=== PATIENT | male | born 1980 | race Caucasian/White ===

== ENCOUNTER 2016-10-05 18:04 | Emergency (ER) | payer OTHER ==
[~2016-10-05] VITALS: Ht 182.9 cm; Wt 100.0 kg
[~2016-10-05 18:04] MED LIST: CYCL10TA9 PO; IBUP800T28 PO
[2016-10-05 18:05] VITALS: BP 133/70; PULSE 93; RESP 19; O2SAT 98
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
--- NOTE | 2016-10-05 19:37 | DRSVH ---
PROCEDURE: CT CERVICAL SPINE WITHOUT CONTRAST ([id number]) INDICATIONS: seizure TECHNIQUE: Noncontrast 3 mm thick sections acquired from the skull base to the T4 level. Sagittal and coronal r eformats were then constructed. For radiation dose reduction, the following was used: automated exp osure control, adjustment of mA and/or kV according to patient size. COMPARISON: [facility], CT, CT CERVICAL SPINE WO CON, 12/27/2015, 12:01. FINDINGS: Image quality: Excellent. Bones: No fractures or dislocations. Visualized superior ribs are intact. Soft tissues: Prevertebral soft tissues are normal in thickness. No paravertebral hematomas. No ap ical pneumothoraces. IMPRESSION: No abnormalities found in the cervical spine. Specifically no fracture. Dictated by: Jordan Joy M.D. on 10/05/2016 at 19:32 Approved by: Jordan Jyo M.D. on 10/05/2016 at 19:35
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
--- NOTE | 2016-10-05 19:48 | DRSVH ---
PROCEDURE: X-RAY PELVIS W/LAT HIP (LT) ([id number]) INDICATIONS: hip pain post seizure TECHNIQUE: AP pelvis with lateral view(s) of the left hip(s). COMPARISON: None. FINDINGS: Bones: No fractures or dislocations. Pelvic ring appears intact. No suspicious bony lesions. Soft tissues: The visualized bowel gas pattern is normal. No suspicious soft tissue calcifications. IMPRESSION: No traumatic abnormalities seen in the pelvis or left hip. Dictated by: Jordan Joy M.D. on 10/05/2016 at 19:46 Approved by: Jordan oJy M.D. on 10/05/2016 at 19:47
[2016-10-05 19:57] VITALS: BP 132/70; PULSE 78; RESP 14; O2SAT 99
[2016-10-05 20:08] LABS: BASOPHILS % (AUTO) 0.1 % (0-3); EOSINOPHILS % (AUTO) 0.2 % (0-5); MONOCYTES % (AUTO) 4.9 % (4-12); Mean Corpuscular Hemoglobin 31.5 pg (27.0-35.0); Mean Corpuscular Volume 87.5 fL (81-100); NEUTROPHILS % (AUTO) 86.4 % (40-74); Platelet Count 154 bil/L (150-400)
[2016-10-05 20:53] VITALS: BP 134/80; PULSE 77; RESP 12; O2SAT 99
[2016-10-05] MEDS ORDERED: levETIRAcetam 500 mg Tablet PO ONE (21:10)
[2016-10-05] MEDS ORDERED: HYDROcodone-APAP 5-325 mg Tablet PO ONE (21:10)
[2016-10-05] MEDS ORDERED: LEVE100014 PO (21:13)
[2016-10-05 21:15] VITALS: BP 134/80; PULSE 77; RESP 12; O2SAT 99
== END 2016-10-05 21:36 | disposition home or self-care (01) ==
LOC: SED 18:04
DX: R56.9 Unspecified convulsions (principal); G93.89 Other specified disorders of brain; M25.552 Pain in left hip; F17.200 Nicotine dependence, unspecified, uncomplicated
CPT/HCPCS: 36415; 70450; 72125; 73501; 80053; 85025; 99285; G0480

== ENCOUNTER 2016-11-06 22:58 | Observation (INO) | payer OTHER ==
[~2016-11-06] VITALS: Ht 182.9 cm; Wt 94.1 kg
[~2016-11-06 22:58] MED LIST changes: +LEVE100014 PO
[2016-11-06 23:01] VITALS: BP 157/102; PULSE 100; RESP 22; O2SAT 100
--- NOTE | 2016-11-07 00:07 | ED.REPORT ---
HPI-Headache Date of Service Nov 07, 2016 ED Provider:Lee Ferguson MD The patient is a 36 year old male with a hx of MS, and seizures presenting to the ED complaining of a severe, throbbing headache onset nine days ago. He claims that his headache has been exacerbated over the last couple of days. He was recently diagnosed with MS and began taking methylprednisolone but was experiencing the headaches prior to starting that medication. Additionally, the patient reports that feels lightheaded, and that his heart is racing. He denies vomiting. Nursing Notes Stated Complaint: DIZZY,HEART RACING Chief Complaint: Headache Nursing Notes Reviewed: Yes Allergies: Coded Allergies: No Known Allergies (Unverified Allergy, Unknown, 11/06/16) Scheduled Levetiracetam (Keppra) 1,000 Mg Tablet 1,000 MG PO BID Scheduled PRN Cyclobenzaprine (Cyclobenzaprine) 10 Mg Tablet 10 MG PO TID PRN PRN Spasm Ibuprofen (Ibuprofen) 800 Mg Tablet 800 MG PO TID PRN PRN For Pain General Time Seen by MD: 00:02 Chief Complaint Headache Hx Obtained From: Patient Arrived By: Walk-in Sudden in Onset?: Yes Onset Occurred: More than a week ago... (9 days ago) Symptom Duration: Since onset Quality: Throbbing Recent Healthcare: No recent hospitalization, Recent doctor visit Similar Sx Previous: Yes Risk-Headache )( SAH Risk Stratification RF Statements: Risk factors reviewed )( IC Mass Risk Stratification RF Statements: Risk factors reviewed Past Medical History Past Medical History Chronic back pain secondary to DDD MS Past Surgical History none reported Smoking History Current Every Day Smoker Social History Alcohol Use: 1-3 per week Drug Use: THC Ambulatory Status Independent Review of Systems Heart racing Constitutional: Denies: Chills, Fever GI: Denies: Nausea, Vomiting Neurologic: Reports: Headache, Lightheaded Complete sys rev & neg: except as marked. Respiratory: Denies: Shortness of breath Physical Exam Initial Vital Signs Vital Signs (First) Date Time Temp Pulse Resp B/P Pulse Ox O2 Delivery O2 Flow Rate FiO2 11/06/16 23:01 36.3 100 22 157/102 100 Room Air Initial VS: Reviewed, Vital signs normal ENT: Mucous membranes moist Respiratory: Breath sounds normal, No respiratory distress Cardiovascular: Regular rate & rhythm, Heart sounds normal, Intact distal pulses Abdomen / GI: Soft, Non-tender Back: No CVA tenderness Skin: Warm, Dry Psychiatric: Mood/affect normal General/Constitutional: Awake, Alert, Well hydrated Lips dry Head / Eyes: Atraumatic, Normocephalic Pupils: Positive: Photophobia L, Photophobia R Neck: Atraumatic, Supple, Full range of motion Neurologic: Oriented X3, No motor deficits, No sensory deficits, CN II - XII intact Severe headache Interpretation & Diagnostics Lab Results Interpretation Result Diagram: 11/07/16 0045 11/07/16 0045 Test 11/07/16 00:45 11/07/16 02:45 White Blood Count 10.3th/mm3 (3.8-10.1) Red Blood Count 5.34mil/mm3 (4.40-5.80) Hemoglobin 16.8g/dL (13.8-17.2) Hematocrit 46.2% (41.0-50.0) Mean Corpuscular Volume 86.5fL (81-100) Mean Corpuscular Hemoglobin 31.5pg (27.0-35.0) Mean Corpuscular Hemoglobin Concent 36.4% (32.0-37.0) Red Cell Distribution Width 12.3% (12.3-15.4) Platelet Count 157bil/L (150-400) Neutrophils (%) (Auto) 68.9% (40-74) Lymphocytes (%) (Auto) 22.4% (14-46) Monocytes (%) (Auto) 6.9% (4-12) Eosinophils (%) (Auto) 0.6% (0-5) Basophils (%) (Auto) 0.1% (0-3) Sodium Level 138mEq/L (134-144) Potassium Level 3.4mEq/L (3.5-5.2) Chloride Level 100mEq/L (97-108) Carbon Dioxide Level 25mmol/L (18-29) Blood Urea Nitrogen 20mg/dL (6-20) Creatinine 0.78mg/dL (0.76-1.27) Estimat Glomerular Filtration Rate 119mL/min (>59) Glucose Level 90mg/dL (60-99) Calcium Level 8.6mg/dL (8.5-10.1) Magnesium Level 2.3mg/dL (1.6-2.6) Total Bilirubin 0.5mg/dL (0.0-1.2) Aspartate Amino Transf (AST/SGOT) 15U/L (0-50) Alanine Aminotransferase (ALT/SGPT) 25U/L (0-44) Alkaline Phosphatase 57U/L (25-150) Total Protein 5.9g/dL (6.4-8.4) Albumin 3.8g/dL (3.4-5.0) CT Head Interpretation CONCLUSION: Areas of low-density in the white matter as described are compatible with MS plaques. No significant mass effect. No hemorrhage. No specific etiology for headache. This report was transmitted to the emergency room at 11/07/2016 - 12:49:51 AM PDT. Study: Head CT no contrast Interpretation / Wet Read by: Interpret - Radiologist Re-Eval/Medical Decision Med Decision/Clinical Course 36-year-old male recently diagnosed with MS and on infusions of methylprednisolone. He developed severe headache which was treated here with Compazine, fluids, and Toradol with good relief. Repeat CT scan because of the intensity of headache showed worsening MS plaques. His case was discussed with Dr. rush and he will be admitted to the hospital service. He will get a MS protocol MRI and neurological consult first thing in the morning. Re-Evaluation/Progress : Time of Eval: 01:19 Re-Evaluation/Progress Note: Patient rechecked. Discussed plan to admit. Patient understands and agrees with the plan. All questions addressed at this time. Consultation #1: Referral / Consult Name: Jamal Rush MD Consulted With: Neurology Call Returned at: 00:57 Drum Tender: Agrees with eval, Agrees with plan Note: Discussed patient's condition. Agrees with evaluation and plan to admit. Wants to get MRI in the morning. Consultation #2: Referral / Consult Name: Manasa Edwards DO Consulted With: Hospitalist Call Returned at: 01:42 Drum Tender: Will see patient, Agrees with plan, Accepts admit Note: Accepts admit. Counseled Regarding: Diagnosis, Lab results, Need for admission Discharge & Departure Referrals: Ra Brennan MD (PCP) Scribe Attestation Portions of this note were transcribed by Dominick Resendiz. I, Dr. Ferguson personally performed the history, physical exam and medical decision-making; I reviewed and confirmed the accuracy of the information in the transcribed note. Signed by: Louis Barr, 11/07/2016 copies to: Ra Brennan MD, Lee Glez MD Nov 07, 2016 00:07 Nov 07, 2016 00:16
[2016-11-07] MEDS ORDERED: 0.9% Sodium Chloride 1,000 ML IV ONE ×2 (00:19→01:03)
[2016-11-07] MEDS ORDERED: ProchlorPERazine 5 mg/mL 2 mL Inj IVPUSH ONE (00:20)
[2016-11-07 01:24] LABS: BASOPHILS % (AUTO) 0.1 % (0-3)
[2016-11-07 01:35] LABS: EOSINOPHILS % (AUTO) 0.6 % (0-5); MONOCYTES % (AUTO) 6.9 % (4-12); Mean Corpuscular Hemoglobin 31.5 pg (27.0-35.0); Mean Corpuscular Volume 86.5 fL (81-100); NEUTROPHILS % (AUTO) 68.9 % (40-74); Platelet Count 157 bil/L (150-400)
[2016-11-07 01:56] LABS: Magnesium 2.3 mg/dL (1.6-2.6)
[2016-11-07] MEDS ORDERED: Polyethylene Glycol (PEG) 17 Gm Powder PO PRN (02:20)
[2016-11-07] MEDS ORDERED: Ondansetron 2 mg/mL 2 mL Inj IVPUSH PRN (02:20)
[2016-11-07] MEDS ORDERED: Alum-Mag Hydrox-Simeth 30 mL Suspension PO PRN (02:20)
[2016-11-07 02:38] VITALS: BP 145/89; PULSE 88; RESP 20; O2SAT 100
--- NOTE | 2016-11-07 03:24 | NUR ---
Admit patient arrived to unit able to self transfer to bed. A&O, oriented to room, and call light. Due to nature of admission, lights left on low or off, and noise is at a minimal. reports hx of seizure 1 month ago, request made to CS for protective seizure pads. Also reports new diagnosis of MS a week or two ago. Bed in low position, call light within reach, frequent rounding for safety.
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
[2016-11-07 03:30] VITALS: BP 112/67; PULSE 53; RESP 18; O2SAT 96
[2016-11-07 03:30] LABS: APPEARANCE,URINE CLEAR (CLEAR,HAZY); COLOR,URINE YELLOW (YELLOW)
[2016-11-07 03:32] LABS: OCCULT BLOOD,URINE NEGATIVE (NEGATIVE); UROBILINOGEN,URINE NORMAL (NORMAL)
[2016-11-07 08:01] VITALS: BP 116/67; PULSE 56; RESP 18; O2SAT 96
[2016-11-07] MEDS ORDERED: Potassium Chloride 20 mEq SR Tablet PO ONE (08:25)
[2016-11-07] MEDS ORDERED: levETIRAcetam 500 mg Tablet PO SCH (08:30)
[2016-11-07] MEDS ORDERED: Heparin 5,000 Unit/mL Inj SUBQ SCH (08:30)
--- NOTE | 2016-11-07 10:00 | NUR ---
Anxiety/Relationship troubles Pt became anxious and stating "I'm feeling much better and I feel I need to leave now. I'm in the process of a bad breakup with a girl I've dated for 9 years and she's going to clean me out if I don't leave soon." MD alerted to situation, RN encouraged pt to stay and explained the process of leaving AMA to which pt states understanding and decided to stay at least until noon or talking to the MD. Care ongoing.
--- NOTE | 2016-11-07 10:19 | DRSVH ---
PROCEDURE: CT BRAIN WITHOUT CONTRAST ([id number]) INDICATIONS: severe headache TECHNIQUE: Noncontrast 4.5 mm thick angled axial sections acquired from the foramen magnum to the vertex, with c oronal reformats. COMPARISON: [facility], CT, CT BRAIN WO CON, 12/27/2015, 12:01. [facility], CT, CT BRAIN WO CON, 10/05/2016, 19:14. FINDINGS: Image quality: Excellent. CSF spaces: Basal cisterns are patent. No extra-axial fluid collections. Ventricles are normal in size and shape. Brain: No midline shift. As previously identified, there are patchy areas of hypodensity within the white matter most prominent in the right frontal and left parietal-occipital lobes. It is mildly mor e prominent. No intracranial masses or hemorrhage. Connor-white matter interface is normal. Skull and face: Calvarium and visualized facial bones are intact, without suspicious lesions. Sinuses: Visualized sinuses and mastoids are clear. IMPRESSION: 1. No acute intracranial process. 2. Low attenuation white matter foci, as above. These could be related to old trauma, infection/inf arction. Other etiologies such as demylinating disease or neoplastic mass cannot be excluded. MRI Br ain with and without contrast is recommended for further evaluation. Dictated by: Le Rosenberg M.D. on 11/07/2016 at 10:05 Approved by: Le Rosenberg M.D. on 11/07/2016 at 10:17
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
--- NOTE | 2016-11-07 14:40 | NUR ---
Social Work: Initial Assessment Data: See initial assessment. Patient is a 36 year old male who was admitted on 11/07/16 for headache acute MS flare per H&P. Patient's insurance is [employer] and his PCP is Ra Brennan MD. EMR reviewed. SW met with patient to discuss discharge planning. SW role explained. Patient states that he lives with his girlfriend in [place]. Patient states that he and his girlfriend of 10 years just broke up so he will likely be relocating. Patient states that all of his family are from out of states but he does having friends available for support if needed. Patient confirms that he is I at baseline and is able to perform all ADLs and care needs. Patient states that he does have a cane that he uses while hiking. Patient confirms that he drives via POV. Patient states that he received home health RN and home infusion with [facility] last week. Patient denies having a hx of SNF. Patient denies having detention care insurance or VA benefits. Patient states that upon discharge, his neighbor will transport him home. SW provided patient with a discharge planning checklist booklet and encouraged to call with any questions or concerns. Phone number provided. SW will continue to follow. Assessment: Patient will discharge home when medically stable. Plan: Patient will likely discharge home when medically stable. Transportation will be provided patient's neighbor. SW will continue to follow for additional needs. CHRISSIE Matthew Addendum: 11/07/16 at 1455 by SORAIDA WALKER SS Amended: Links added.
--- NOTE | 2016-11-07 15:00 | NUR ---
AMA Pt left AMA with IV site in place; no hx of IV Drug use. Pt called at home and requested to come back to the hospital to which he replied, "No thanks, I'm going to go to bed." No AMA form signed. MD Miller team notified.
[2016-11-07] MEDS ORDERED: TOPI25TA34 PO (16:52)
[2016-11-07] MEDS ORDERED: IMI100 PO (16:52)
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
== END 2016-11-07 16:00 | disposition left against medical advice (07) ==
LOC: SED 22:58 → OSC 11-07 02:49
PROVIDERS: ADMIT Internal Medicine; ATTEND Internal Medicine
DX: G43.009 Migraine without aura, not intractable, without status migrainosus (principal); G35 Multiple sclerosis; R56.9 Unspecified convulsions; M54.9 Dorsalgia, unspecified; F17.210 Nicotine dependence, cigarettes, uncomplicated; F12.90 Cannabis use, unspecified, uncomplicated
CPT/HCPCS: 36415; 70450; 80053; 81000; 83735; 85025; 96374; 96375; 96376; 99285; G0378; G0480; J0780; J1644; J1885; J7030